=== PATIENT | male | born 1995 | race Two or more races ===

== ENCOUNTER 2024-07-19 19:59 | Emergency (ER) | payer OTHER ==
[~2024-07-19] VITALS: Ht 177.8 cm; Wt 97.7 kg
[2024-07-19 20:02] VITALS: TEMP 98
[2024-07-19] MEDS: ACETAMINOPHEN 500 MG TABLET PO ONE (21:31)
[2024-07-19 22:27] VITALS: BP 119/72; PULSE 72; RESP 14; O2SAT 97
== END 2024-07-19 22:28 | disposition home or self-care (01) ==
LOC: EMS 19:59
DX: S82.832A Other fracture of upper and lower end of left fibula, initial encounter for closed fracture (principal); X50.1XXA Overexertion from prolonged static or awkward postures, initial encounter; Y93.68 Activity, volleyball (beach) (court); Y92.89 Other specified places as the place of occurrence of the external cause; Y99.8 Other external cause status
CPT/HCPCS: 29515; 99283